=== PATIENT | male | born 1995 | race Caucasian/White ===

== ENCOUNTER 2018-12-23 10:28 | Emergency (ER) | payer SELFPAY ==
[~2018-12-23] VITALS: Ht 165.1 cm; Wt 84.0 kg
[~2018-12-23 10:28] MED LIST: ACYC800T5 PO; PRED20TA PO
[2018-12-23 10:56] VITALS: BP 113/63; PULSE 68; RESP 18; Ht 165.1 cm; Wt 84.0 kg
--- NOTE | 2018-12-23 11:19 | ERD ---
ER Documentation Chief Complaint Chief Complaint H/A FOR 3 DAYS. NO N/V. NO NEURO DEFICIT. HPI A 23-year-old male presents with headache for the past 3 days. He states it starts in his left side of his neck and radiates forward. He then noticed he has some redness in his left eye. He has difficulty lifting his left eyebrow. No upper or lower extremity weakness. No nausea or vomiting or diarrhea. No dizziness or visual changes. Has not tried any medications for this. ROS All systems reviewed and are negative except as per history of present illness. Medications Home Meds Active Scripts Prednisone* (Prednisone*) 20 Mg Tab, 60 MG PO DAILY for 5 Days, TAB Prov:TRU DUNN PA-C 12/23/18 Acyclovir* (Zovirax*) 800 Mg Tablet, 800 MG PO 5 TIMES DAILY for 7 Days, TAB Prov:TRU DUNN PA-C 12/23/18 FmHx Family History: No diabetes Physical Exam Vitals Vital Signs Date Temp Pulse Resp B/P (MAP) Pulse Ox O2 O2 Flow FiO2 Time Delivery Rate 12/23/18 98.2 68 18 113/63 99 10:56 (80) Physical Exam Const: No acute distress Head: Atraumatic Eyes: Normal Conjunctiva ENT: Normal External Ears, Nose and Mouth. Neck: Full range of motion. No meningismus. Resp: Clear to auscultation bilaterally Cardio: Regular rate and rhythm, no murmurs Neuro: M/S: Alert and oriented Face: EOMI, unable to lift left eyebrow Motor: Normal strength throughout Sensation: Normal sensation throughout Speech: Normal Cerebel: Normal coordination Normal gait Normal finger to nose Procedures/MDM Patient presents with Figueroa's palsy. Low suspicion for ischemic stroke. Discharged with acyclovir and prednisone. Patient counseled regarding my diagnostic impression and care plan. Prior to discharge all questions answered. Pt agrees with treatment plan and understands strict return precautions. Pt is instructed to follow up with primary care provider within 24-48 hours. Precautionary instructions provided including instructions to return to the ER if not improving or for any worsening or changing symptoms or concerns. Departure Diagnosis: Primary Impression: Figueroa's palsy Condition: Stable Patient Instructions: Figueroa's Palsy Additional Instructions: Llame al doctor RUI y gil tuan DARON PARA DENTRO DE 1-2 FLORES.Dgale a la secretaria que nosotros le instruimos hacer esta daron.Avise o llame si perez condicin se empeora antes de la daron. Regresa aqui si peor o no mejor. TRU DUNN PA-C Dec 23, 2018 11:19
== END 2018-12-23 11:36 | disposition home or self-care (01) ==
LOC: FTE 10:28
DX: G51.0 Bell's palsy (principal)
CPT/HCPCS: 99283